=== PATIENT | male | born 1935 | race Caucasian/White ===

== ENCOUNTER 2018-05-16 19:39 | Observation (INO) | payer OTHER ==
--- NOTE | 2018-05-16 19:56 | EDPHY ---
H & P Time Seen by Provider: 05/16/18 19:55 HPI/ROS: CHIEF COMPLAINT: Left-sided abdominal pain HISTORY OF PRESENT ILLNESS: Patient is here for his nephew's wedding and has had abdominal pain since about Friday. He describes it as like a"electric shock"when he moves, his left side of his abdomen, does not radiate. Worsening over the last couple of days. Not associated with vomiting or diarrhea or fever or chills or urinary symptoms. He is worried about intestinal perforation. Decreased oral intake because of his symptoms over the last 3 days. REVIEW OF SYSTEMS: Eye: no change in vision ENT: no sore throat Cardiac: no chest pain or syncope Pulmonary: no cough or SOB Abdomen: HPI Musculoskeletal: no back pain Skin: no rash Neuro: no headache Constitutional: no fever : no urinary symptoms A comprehensive 10 point review of systems is otherwise negative aside from elements mentioned in the history of present illness. PAST MEDICAL HISTORY: Includes pacemaker, bypass surgery, perforated ulcer in his 20s, atrial fibrillation on anticoagulation Social history: Visiting from [facility] General Appearance: Alert and conversant, cooperative. Eyes: No scleral icterus. ENT, Mouth: Normal mucous membranes. Respiratory: Normal respiratory effort, breath sounds equal, lungs are clear to auscultation. Cardiovascular: Regular rate and rhythm. Gastrointestinal: Left upper quadrant abdominal tenderness without rebound or guarding. Neurological: Alert, face symmetric, normal motor and sensory in extremities. Skin: Warm and dry, no rashes. Musculoskeletal: No peripheral edema. Psychiatric: Not agitated. Emergency Department course/MDM: Plan for i-STAT and CT abdomen and pelvis, labs to include lipase and protime. Differential includes but not limited to intestinal perforation, diverticulitis , ACS, intra-abdominal hemorrhage, mesenteric ischemia. 2220: Attempted to get previous records from [facility], he does have a creatinine dated 03/21/2017 which is 1.1 at [facility] in [place]. He tells me he has never had as history of documented kidney problems. I think the most likely explanation is that he has acute kidney injury because of decreased oral intake over the past several days. Plan for admission, IV hydration, serial creatinine. Constitutional: Initial Vital Signs Temperature (C) 36.8 C 05/16/18 19:53 Heart Rate 96 05/16/18 19:53 Respiratory Rate 20 08/04/18 19:53 Blood Pressure 109/58 L 05/16/18 19:53 O2 Sat (%) 92 05/16/18 19:53 O2 Delivery Mode Room Air Allergies/Adverse Reactions: adhesive Allergy (Verified 05/16/18 19:49) aspirin Allergy (Verified 05/16/18 19:49) Sulfa (Sulfonamide Antibiotics) Allergy (Verified 05/16/18 19:49) Medical Decision Making - Diagnostics EKG Interpretation: 12-lead EKG interpreted by me; official reading is in trace master. My interpretation is atrial fibrillation rate 97 with old anterior MD. Imaging Results: Imaging Impressions Abdomen/Pelvis CT 05/16/18 20:21 Impression: 1. Subtle nonspecific inflammation associated with the left lateral conal fascia in the upper quadrant of the abdomen. 2. Cardiomegaly with coronary artery atherosclerotic calcification and prior pacemaker. 3. Faintly calcified dominant right renal cortical cyst (with simple Hounsfield unit attenuation) and a 1.3 x 1.2 cm lower pole left renal cortical low density lesion. Consider sonographic correlation in follow-up. 4. Nonobstructive left nephrolithiasis. 5. Mild urinary bladder wall thickening with prostatomegaly suggestive of mild outlet stenosis. Correlation with urinalysis may also be of benefit. 6. Mild descending colon and moderate sigmoid colon diverticulosis, without active diverticulitis. Attention: This CT examination is specifically designed to evaluate patients who are clinically suspected of having acute obstructive uropathy. This examination does not use radiographic contrast, and as such, provides only a limited evaluation of the abdomen, pelvis, and retroperitoneum. If there is further clinical suspicion for pathological conditions other than obstructive uropathy, a complete CT evaluation of the abdomen and pelvis utilizing intravenous, oral, and rectal contrast should be considered. Findings were discussed with OANH SCHULTZ MD at 20:53, on 05/16/2018. Imaging: Discussed imaging studies w/ call or contact centre manager Radiologist Differential Diagnosis: Differential for left-sided abdominal pain considered including but not limited to mesenteric ischemia, diverticulitis, intestinal perforation, renal colic Consult/Admit Bed Type: [place] [id number] - Data Points Laboratory Results: Laboratory Results 05/16/18 20:15 05/16/18 20:15 05/16/18 05/16/18 05/16/18 21:28 20:20 20:15 WBC RBC Hgb POC Hgb 15.3 gm/dL gm/dL (13.7-17.5) Hct POC Hct 45 % % (40-51) MCV MCH MCHC RDW Plt Count MPV Neut % (Auto) Lymph % (Auto) [place] % (Auto) Eos % (Auto) Baso % (Auto) Nucleat RBC Rel Count Absolute Neuts (auto) Absolute Lymphs (auto) Absolute Monos (auto) Absolute Eos (auto) Absolute Basos (auto) Absolute Nucleated RBC Immature Gran % Immature Gran # PT 15.3 SEC H SEC (12.0-15.0) INR 1.19 H (0.83-1.16) POC Sodium 138 mEq/L mEq/L (135-145) Sodium POC Potassium 4.3 mEq/L mEq/L (3.3-5.0) Potassium POC Chloride 102 mEq/L mEq/L (97-110) Chloride Carbon Dioxide Anion Gap POC BUN 32 mg/dL H mg/dL (7-23) BUN Creatinine POC Creatinine 2.1 mg/dL H mg/dL (0.7-1.3) Estimated GFR Glucose POC Glucose 87 mg/dL mg/dL (70-100) Calcium Lipase Urine Color YELLOW Urine Appearance HAZY Urine pH 5.0 (5.0-7.5) Ur Specific [place] 1.017 (1.002-1.030) Urine Protein NEGATIVE (NEGATIVE) Urine Ketones NEGATIVE (NEGATIVE) Urine Blood NEGATIVE (NEGATIVE) Urine Nitrate NEGATIVE (NEGATIVE) Urine Bilirubin NEGATIVE (NEGATIVE) Urine Urobilinogen NEGATIVE EU EU (0.2-1.0) Ur Leukocyte Esterase NEGATIVE (NEGATIVE) Urine Glucose NEGATIVE (NEGATIVE) 05/16/18 05/16/18 20:15 20:15 WBC 8.71 10^3/uL 10^3/uL (3.80-9.50) RBC 4.67 10^6/uL 10^6/uL (4.40-6.38) Hgb 14.3 g/dL g/dL (13.7-17.5) POC Hgb Hct 42.0 % % (40.0-51.0) POC Hct MCV 89.9 fL fL (81.5-99.8) MCH 30.6 pg pg (27.9-34.1) MCHC 34.0 g/dL g/dL (32.4-36.7) RDW 14.7 % % (11.5-15.2) Plt Count 212 10^3/uL 10^3/uL (150-400) MPV 9.2 fL fL (8.7-11.7) Neut % (Auto) 75.1 % H % (39.3-74.2) Lymph % (Auto) 10.6 % L % (15.0-45.0) [place] % (Auto) 13.0 % % (4.5-13.0) Eos % (Auto) 0.5 % L % (0.6-7.6) Baso % (Auto) 0.3 % % (0.3-1.7) Nucleat RBC Rel Count 0.0 % % (0.0-0.2) Absolute Neuts (auto) 6.55 10^3/uL H 10^3/uL (1.70-6.50) Absolute Lymphs (auto) 0.92 10^3/uL L 10^3/uL (1.00-3.00) Absolute Monos (auto) 1.13 10^3/uL H 10^3/uL (0.30-0.80) Absolute Eos (auto) 0.04 10^3/uL 10^3/uL (0.03-0.40) Absolute Basos (auto) 0.03 10^3/uL 10^3/uL (0.02-0.10) Absolute Nucleated RBC 0.00 10^3/uL 10^3/uL (0-0.01) Immature Gran % 0.5 % % (0.0-1.1) Immature Gran # 0.04 10^3/uL 10^3/uL (0.00-0.10) PT INR POC Sodium Sodium 140 mEq/L mEq/L (135-145) POC Potassium Potassium 4.8 mEq/L mEq/L (3.3-5.0) POC Chloride Chloride 102 mEq/L mEq/L (97-110) Carbon Dioxide 22 mEq/l mEq/l (22-31) Anion Gap 16 mEq/L mEq/L (8-16) POC BUN BUN 33 mg/dL H mg/dL (7-23) Creatinine 2.0 mg/dL H mg/dL (0.7-1.3) POC Creatinine Estimated GFR 32 Glucose 89 mg/dL mg/dL (70-100) POC Glucose Calcium 9.5 mg/dL mg/dL (8.5-10.4) Lipase 81 IU/L IU/L (23-300) Urine Color Urine Appearance Urine pH Ur Specific [place] Urine Protein Urine Ketones Urine Blood Urine Nitrate Urine Bilirubin Urine Urobilinogen Ur Leukocyte Esterase Urine Glucose Medications Given: Discontinued Medications Sodium Chloride (Ns) 1,000 mls @ 0 mls/hr IV EDNOW ONE; Wide Open PRN Reason: Protocol Stop: 05/16/18 20:06 Last Admin: 05/16/18 20:24 Dose: 1,000 mls Sodium Chloride (Ns) 1,000 mls @ 0 mls/hr IV EDNOW ONE; Wide Open PRN Reason: Protocol Stop: 05/16/18 21:17 Last Admin: 05/16/18 21:22 Dose: 1,000 mls Point of Care Test Results: Chemistry 05/16/18 20:20 POC Sodium 138 mEq/L mEq/L (135-145) POC Potassium 4.3 mEq/L mEq/L (3.3-5.0) POC Chloride 102 mEq/L mEq/L (97-110) POC BUN 32 mg/dL H mg/dL (7-23) POC Creatinine 2.1 mg/dL H mg/dL (0.7-1.3) POC Glucose 87 mg/dL mg/dL (70-100) ISTAT H&H 05/16/18 20:20 POC Hgb 15.3 gm/dL gm/dL (13.7-17.5) POC Hct 45 % % (40-51) Departure - Departure Disposition: [facility] Inpatient Acute Clinical Impression: Acute kidney injury Abdominal pain Qualifiers: Abdominal location: left upper quadrant Qualified Code(s): R10.12 - Left upper quadrant pain Condition: Good
[2018-05-16] MEDS ORDERED: NS 1,000 ML IV ONE ×2 (20:05→21:16)
--- NOTE | 2018-05-16 20:12 | CPEKG ---
Heart Rate: 97 RR Interval: 619 QRSD Interval: 90 QT Interval: 352 QTC Interval: 447 QRS [place]: 73 T Wave [place]: 246 EKG Severity - ABNORMAL ECG - EKG Impression: ATRIAL FIBRILLATION EKG Impression: ANTERIOR INFARCT, AGE INDETERMINATE EKG Impression: NONSPECIFIC T ABNORMALITIES, INFERIOR LEADS Electronically Signed By: Oskar Pagan 16-May-2018 20:14:15
[2018-05-16 20:32] LABS: PLATELET COUNT 212 10^3/uL (150-400)
[2018-05-16 20:48] LABS: INR 1.19 (0.83-1.16)
[2018-05-16 21:00] LABS: PROTIME(PATIENT) 15.3 SEC (12.0-15.0)
[2018-05-16] MEDS ORDERED: ONDANSETRON 4 MG/2 ML VIAL IVP PRN (22:21)
[2018-05-16] MEDS ORDERED: ACETAMINOPHEN 325 MG TAB PO PRN (22:21)
[2018-05-16] MEDS ORDERED: ONDANSETRON DISINTEGRATING 4 MG TAB PO PRN (22:21)
--- NOTE | 2018-05-16 23:53 | PDGENHP ---
History and Physical - Chief Complaint Abdominal pain - History of Present Illness 83 yo M w/ hx of CAD s/p CABG presents with abdominal wall pain. The patient tells me he began to notice LLQ abdominal wall pain 4 days ago. He actually describes it as more of a discomfort than a pain. He had a bowel perforation 20 years ago so he was concerned the same thing may be going on. He denies serious pain, abdominal distention, fevers/chills, BRBPR, and melena. At the time of my evaluation the pain is not present. In the ED CT evaluation was fairly unremarkable, with only a nonspecific area of mild inflammation in the LUQ, which does not correlate with the site of his symptoms. Laboratory work-up was notable for DEBI so he is being admitted for observation of this. He denies any prior renal disease. He denies any urinary symptoms at this time. He does think he has felt dehydrated over the last few days since traveling here from [facility] for a wedding. Case discussed with ED physician Dr. Oanh Schultz, available records reviewed in EMR. History Information - Allergies/Home Medication List Allergies/Adverse Reactions: adhesive Allergy (Verified 05/16/18 19:49) aspirin Allergy (Verified 05/16/18 19:49) Sulfa (Sulfonamide Antibiotics) Allergy (Verified 05/16/18 19:49) I have personally reviewed and updated: family history, medical history - Past Medical History coronary artery disease - Surgical History Reports: appendectomy, coronary bypass surgery - Family History Positive for: CAD - Social History Smoking Status: Never smoked Review of Systems Review of Systems: ROS: 10pt was reviewed & negative except for what was stated in HPI & below Physical Exam Physical Exam: Temp Pulse Resp BP Pulse Ox 36.7 C 80 20 155/87 H 90 L 05/16/18 23:17 05/16/18 23:17 05/16/18 23:17 05/16/18 23:17 05/16/18 23:17 Constitutional: no apparent distress, obese Eyes: PERRL, EOMI Ears, Nose, Mouth, Throat: moist mucous membranes, no oral mucosal ulcers Cardiovascular: regular rate and rhythym, no murmur, rub, or gallop Respiratory: no respiratory distress, clear to auscultation Gastrointestinal: normoactive bowel sounds, soft, non-tender abdomen, No guarding, No rebound, No distension Skin: warm, normal color Musculoskeletal: full muscle strength, no muscle tenderness Neurologic: AAOx3, CN II-XII Intact Psychiatric: interacting appropriately, not anxious Lab Data & Imaging Review 05/16/18 20:15 05/16/18 20:15 WBC 8.71 10^3/uL (3.80-9.50) 05/16/18 20:15 RBC 4.67 10^6/uL (4.40-6.38) 05/16/18 20:15 Hgb 14.3 g/dL (13.7-17.5) 05/16/18 20:15 POC Hgb 15.3 gm/dL (13.7-17.5) 05/16/18 20:20 Hct 42.0 % (40.0-51.0) 05/16/18 20:15 POC Hct 45 % (40-51) 05/16/18 20:20 MCV 89.9 fL (81.5-99.8) 05/16/18 20:15 MCH 30.6 pg (27.9-34.1) 05/16/18 20:15 MCHC 34.0 g/dL (32.4-36.7) 05/16/18 20:15 RDW 14.7 % (11.5-15.2) 05/16/18 20:15 Plt Count 212 10^3/uL (150-400) 05/16/18 20:15 MPV 9.2 fL (8.7-11.7) 05/16/18 20:15 Neut % (Auto) 75.1 % (39.3-74.2) H 05/16/18 20:15 Lymph % (Auto) 10.6 % (15.0-45.0) L 05/16/18 20:15 [place] % (Auto) 13.0 % (4.5-13.0) 05/16/18 20:15 Eos % (Auto) 0.5 % (0.6-7.6) L 05/16/18 20:15 Baso % (Auto) 0.3 % (0.3-1.7) 05/16/18 20:15 Nucleat RBC Rel Count 0.0 % (0.0-0.2) 05/16/18 20:15 Absolute Neuts (auto) 6.55 10^3/uL (1.70-6.50) H 05/16/18 20:15 Absolute Lymphs (auto) 0.92 10^3/uL (1.00-3.00) L 05/16/18 20:15 Absolute Monos (auto) 1.13 10^3/uL (0.30-0.80) H 05/16/18 20:15 Absolute Eos (auto) 0.04 10^3/uL (0.03-0.40) 05/16/18 20:15 Absolute Basos (auto) 0.03 10^3/uL (0.02-0.10) 05/16/18 20:15 Absolute Nucleated RBC 0.00 10^3/uL (0-0.01) 05/16/18 20:15 Immature Gran % 0.5 % (0.0-1.1) 05/16/18 20:15 Immature Gran # 0.04 10^3/uL (0.00-0.10) 05/16/18 20:15 PT 15.3 SEC (12.0-15.0) H 05/16/18 20:15 INR 1.19 (0.83-1.16) H 05/16/18 20:15 VBG Lactic Acid 2.0 mmol/L (0.7-2.1) 05/16/18 Unknown POC Sodium 138 mEq/L (135-145) 05/16/18 20:20 Sodium 140 mEq/L (135-145) 05/16/18 20:15 POC Potassium 4.3 mEq/L (3.3-5.0) 05/16/18 20:20 Potassium 4.8 mEq/L (3.3-5.0) 05/16/18 20:15 POC Chloride 102 mEq/L (97-110) 05/16/18 20:20 Chloride 102 mEq/L (97-110) 05/16/18 20:15 Carbon Dioxide 22 mEq/l (22-31) 05/16/18 20:15 Anion Gap 16 mEq/L (8-16) 05/16/18 20:15 POC BUN 32 mg/dL (7-23) H 05/16/18 20:20 BUN 33 mg/dL (7-23) H 05/16/18 20:15 Creatinine 2.0 mg/dL (0.7-1.3) H 05/16/18 20:15 POC Creatinine 2.1 mg/dL (0.7-1.3) H 05/16/18 20:20 Estimated GFR 32 05/16/18 20:15 Glucose 89 mg/dL (70-100) 05/16/18 20:15 POC Glucose 87 mg/dL (70-100) 05/16/18 20:20 Calcium 9.5 mg/dL (8.5-10.4) 05/16/18 20:15 Lipase 81 IU/L (23-300) 05/16/18 20:15 Urine Color YELLOW 05/16/18 21:28 Urine Appearance HAZY 05/16/18 21:28 Urine pH 5.0 (5.0-7.5) 05/16/18 21:28 Ur Specific [place] 1.017 (1.002-1.030) 05/16/18 21:28 Urine Protein NEGATIVE (NEGATIVE) 05/16/18 21:28 Urine Ketones NEGATIVE (NEGATIVE) 05/16/18 21:28 Urine Blood NEGATIVE (NEGATIVE) 05/16/18 21:28 Urine Nitrate NEGATIVE (NEGATIVE) 05/16/18 21:28 Urine Bilirubin NEGATIVE (NEGATIVE) 05/16/18 21:28 Urine Urobilinogen NEGATIVE EU (0.2-1.0) 05/16/18 21:28 Ur Leukocyte Esterase NEGATIVE (NEGATIVE) 05/16/18 21:28 Urine Glucose NEGATIVE (NEGATIVE) 05/16/18 21:28 Imaging Review: Imaging Impressions Abdomen/Pelvis CT 05/16/18 20:21 Impression: 1. Subtle nonspecific inflammation associated with the left lateral conal fascia in the upper quadrant of the abdomen. 2. Cardiomegaly with coronary artery atherosclerotic calcification and prior pacemaker. 3. Faintly calcified dominant right renal cortical cyst (with simple Hounsfield unit attenuation) and a 1.3 x 1.2 cm lower pole left renal cortical low density lesion. Consider sonographic correlation in follow-up. 4. Nonobstructive left nephrolithiasis. 5. Mild urinary bladder wall thickening with prostatomegaly suggestive of mild outlet stenosis. Correlation with urinalysis may also be of benefit. 6. Mild descending colon and moderate sigmoid colon diverticulosis, without active diverticulitis. Attention: This CT examination is specifically designed to evaluate patients who are clinically suspected of having acute obstructive uropathy. This examination does not use radiographic contrast, and as such, provides only a limited evaluation of the abdomen, pelvis, and retroperitoneum. If there is further clinical suspicion for pathological conditions other than obstructive uropathy, a complete CT evaluation of the abdomen and pelvis utilizing intravenous, oral, and rectal contrast should be considered. Findings were discussed with OANH SCHULTZ MD at 20:53, on 05/16/2018. Visualized and Interpreted EKG results: Yes EKG Interpretation: Positive for: other (Afib) Assessment & Plan Assessment: 83 yo m w/ hx of CAD, AF presents with abdominal wall pain and incidentally found to have DEBI. Plan: 1. DEBI - Serum Cr 2.0 on admission, increased from normal baseline. I suspect pre-renal azotemia in setting of [place] in the last week. He denies any urinary symptoms. - S/p 2L IVF - Repeat BMP in the morning - Will check FeNa 2. Abdominal wall pain - I suspect MSK etiology noting lack of significant findings on CT A/P that would correlate with very localized LLQ pain. Abdominal exam currently very reassuring as I was not able to elicit tenderness on my exam. - Continue to monitor with serial abdominal exams 3. CAD - s/p CABG; does not recall his home meds but thinks he is taking an aspirin and another blood thinner. - Needs med reconciliation 4. AF - Noted on admission ECG; currently rate controlled and hemodynamically stable. - Needs med reconciliation Diet - Regular Code - Full x - [facility] Dispo - Admit under observation status
[2018-05-17 04:39] LABS: PLATELET COUNT 201 10^3/uL (150-400)
[2018-05-17] MEDS: HEPARIN 5,000 UNIT/0.5 ML INJ SC SCH ×2 (06:09→13:19)
[2018-05-17 07:17] VITALS: BP 149/92
[2018-05-17] MEDS ORDERED: DILTIAZEM CD 120 MG CAP PO SCH (11:30)
[2018-05-17] MEDS ORDERED: LOSARTAN POTASSIUM 25 MG TAB PO SCH (11:30)
[2018-05-17] MEDS ORDERED: ROSUVASTATIN CALCIUM 40 MG TAB PO SCH (11:30)
[2018-05-17] MEDS ORDERED: VENLAFAXINE HCL 75 MG TAB PO SCH (11:30)
--- NOTE | 2018-05-17 12:14 | PDDCSUM ---
Discharge Summary Discharge Summary: DISCHARGE DIAGNOSES: * left lower quadrant abdominal pain, resolved, uncertain etiology * acute renal failure due to dehydration, improved after hydration * acute dehydration due to poor intake, altitude exposure * incidentally noted hypodense lesion in the left renal cortex and calcified cyst in the right renal cortex on CT scan * chronic heart disease with coronary disease AFib and pacemaker, all stable at present * recent diagnosis of possible Lewy body disease with outpatient neurology consult pending PROCEDURES: CT scan of abdomen HOSPITAL COURSE SUMMARY: This patient who has a history of abdominal illnesses including add bowel perforation from an ulcer, presented to the hospital with 4 days of worsening left lower quadrant abdominal pain. He had no nausea or vomiting, no bloating, no change in his chronic stable bowel function, no evidence of bleeding, no fever, no back or flank pain. He had a benign abdominal examination at the time of presentation. A CT scan of the abdomen had been done which showed no specific findings to explain left lower quadrant pain or tenderness, though some nonobstructing left renal stones were present. 1 possibility is that he passed a small kidney stone that was not seen within the ureter by CT scan. His vital signs were stable but he did have an elevated creatinine at 2.0 which is not normal for him. The patient has been treated conservative here was some IV hydration. His pain is markedly improved over night and he has a normal abdominal examination at this time. He is eating and having his usual bowel function. There have been no fevers. His renal function has improved significantly with creatinine down to 1.5. At this time it is felt that he is stable to leave the hospital which is his desire. Incidentally noted on the patient's CT scan are a right renal cyst with some calcifications, and a 1.3 cm left renal hypodensity of uncertain etiology. Ultrasound and further clinical assessment were recommended by the radiologist. At this point it will be recommended that the patient have this study compared with any previous studies he has had at his home in [facility] which his primary care physician can arrange. If he has not had prior studies are of these lesions are new, ultrasound and possibly urologic consultation would be recommended. The patient will be traveling back to [facility] today. His given copies of his records to take with him to visit with his primary care doctor. PENDING TEST RESULTS: None MEDICATION CHANGES: None FOLLOW-UP PLAN: With his primary care physician within 1 week to check on resolution of his pain and to review his CT scan images with renal abnormalities as described above. Greater than 35 minutes bedside and care coordination time today
--- NOTE | 2018-05-17 12:16 | ASMTCMCOM ---
CM Note CM Note Notes: Care Management Chart Review: Patient is 83 y/o males with history of CAD, AF, s/p CABG who presented to ED with abdominal wall pain and admitted for observation for DEBI. Josefina listed in chart. CM spoke with RN, patient likely to discharge today independent as he has a 3pm flight back to [place] scheduled. CM to follow. Current Discharge Plan: likely discharge independent today. Date Signed: 05/17/2018 12:16 PM Electronically Signed By:Donna Nicole
--- NOTE | 2018-05-17 12:19 | ASDISCHSUM ---
Discharge Information Plan Status:Home with No Needs Medically Cleared to Leave:05/17/2018 Discharge Date:05/17/2018 CM D/C Disposition:Home, Routine, Self-Care ADT D/C Disposition:Home, Routine, Self-Care Projected Discharge Date:05/17/2018 12:00 AM Transportation at D/C:Family Discharge Delay Reason: Follow-Up Date:05/17/2018 12:00 AM Discharge Slot:2 - 12:01 pm - 18:00 pm Final Diagnosis:Lower Left Quadrant abdominal pain, uncertain etiology Placement Information Patient Contact Information Contact Name:TOM Relationship: Address:[address] [place] Work Phone: City:[place] Alternate Phone: State/Zip Code:[place] [address] Email: Financial Information Financial Class:Medicare Primary Plan Desc:MEDICARE OUTPATIENT Primary Plan Number:[id number] Secondary Plan Desc:МАРИЯ Secondary Plan Number:[id number] Assessment Information [facility] CM Progress Note CM Note CM Note Notes: Care Management Chart Review: Patient is 83 y/o males with history of CAD, AF, s/p CABG who presented to ED with abdominal wall pain and admitted for observation for DEBI. Josefina listed in chart. CM spoke with RN, patient likely to discharge today independent as he has a 3pm flight back to [place] scheduled. CM to follow. Current Discharge Plan: likely discharge independent today. Date Signed: 05/17/2018 12:16 PM Electronically Signed By:Donna Nicole Intervention Information
[2018-05-17] MEDS ORDERED: WARFARIN SODIUM 5 MG TAB PO SCH (16:00)
[2018-05-17] MEDS ORDERED: MELATONIN 20 MG PO SCH (21:00)
[2018-05-18] MEDS ORDERED: PRESERVISION AREDS2 FORMULA EYE VIT 1 EACH PO SCH (09:00)
== END 2018-05-17 14:01 | disposition home or self-care (01) ==
LOC: F3E 23:09
PROVIDERS: ADMIT Student in an Organized Health Care Education/Training Program; ATTEND Student in an Organized Health Care Education/Training Program
DX: R10.32 Left lower quadrant pain (principal); N17.9 Acute kidney failure, unspecified; E86.0 Dehydration; T70.29XA Other effects of high altitude, initial encounter; N28.89 Other specified disorders of kidney and ureter; N20.0 Calculus of kidney; N28.1 Cyst of kidney, acquired; N40.0 Benign prostatic hyperplasia without lower urinary tract symptoms; K57.30 Diverticulosis of large intestine without perforation or abscess without bleeding; I51.9 Heart disease, unspecified; I25.10 Atherosclerotic heart disease of native coronary artery without angina pectoris; I48.91 Unspecified atrial fibrillation; Z95.0 Presence of cardiac pacemaker
CPT/HCPCS: 74176; 93005; G0378; J1644; 82435-PO; 82565-PO; 82947-PO; 84132-PO; 84295-PO; 84520-PO; 85014-PO